=== PATIENT | female | born 1985 | race Caucasian/White ===

== ENCOUNTER 2022-07-14 09:37 | Outpatient (REF) | payer OTHER, SELFPAY ==
--- NOTE | ~2022-07-14 | XR_ITS ---
EXAMINATION: LUMBAR SPINE AND RIGHT HIP X-RAY CLINICAL INFORMATION: Radiculopathy. Right hip pain. COMPARISON: None TECHNIQUE: 2 views of the right hip and 3 views of the lumbar spine FINDINGS: Right hip: Bone alignment is normal. No fracture or dislocation. Normal joint space. Normal soft tissues. Lumbar spine: There is mild curvature of the lumbar spine to the right. There is mild retrolisthesis of L4 with respect L5 measuring 2 mm. Bone alignment is otherwise normal. No fracture or dislocation. Normal disc spaces. XR/XR lumbar spine 2-3V IMPRESSION: Left hip: Unremarkable exam. Lumbar spine: Mild curvature of the lower lumbar spine to the right and retrolisthesis of L4 with respect L5
--- NOTE | ~2022-07-14 | XR_ITS ---
EXAMINATION: LUMBAR SPINE AND RIGHT HIP X-RAY CLINICAL INFORMATION: Radiculopathy. Right hip pain. COMPARISON: None TECHNIQUE: 2 views of the right hip and 3 views of the lumbar spine FINDINGS: Right hip: Bone alignment is normal. No fracture or dislocation. Normal joint space. Normal soft tissues. Lumbar spine: There is mild curvature of the lumbar spine to the right. There is mild retrolisthesis of L4 with respect L5 measuring 2 mm. Bone alignment is otherwise normal. No fracture or dislocation. Normal disc spaces. XR/XR hip RT min 2V IMPRESSION: Left hip: Unremarkable exam. Lumbar spine: Mild curvature of the lower lumbar spine to the right and retrolisthesis of L4 with respect L5
[2022-07-14 11:09] LABS: MANUAL DIFF FLAG NO
[2022-07-14 11:15] LABS: Basophils Percent Auto 0.4 % (0-2); Eosinophils Percent Auto 0.3 % (0-4); Hematocrit 37.4 % (37.0-47.0); Hemoglobin 12.4 g/dl (12.0-16.0); Imm Gran Abs Auto 0.02 X10*3/uL (0.00-0.03); Imm Gran Pct Auto 0.3 % (0.0-0.4); Lymphocytes Absolute Auto 1.8 X10*3/uL (1.2-4.9); Lymphocytes Percent Auto 23.9 % (20-40); Mean Corpuscular HGB Conc 33.2 g/dl (31.0-35.0); Mean Corpuscular Hemoglobin 30.7 pg (27.0-33.0); Mean Corpuscular Volume 92.6 fL (80.0-98.0); Mean Platelet Volume 9.6 fL (9.4-12.3); Monocytes Absolute Auto 0.7 X10*3/uL (0.1-1.2); Monocytes Percent Auto 8.8 % (2-11); Neutrophils Percent Auto 66.3 % (45-73); Platelet Count 454 X10*3/uL (160-400); Red Blood Count 4.04 X10*6/uL (4.20-5.50); Red Cell Distribution Width 12.2 % (11.0-16.0); White Blood Count 7.6 X10*3/uL (4.8-10.8)
[2022-07-14 11:39] LABS: Alanine Aminotransferase 17 U/L (0-31); Albumin Level 4.5 g/dL (3.5-5.0); Alkaline Phosphatase 47 U/L (39-117); Anion Gap 15 (12-20); Aspartate Amino Transferase 14 U/L (5-31); Bilirubin Total 0.5 mg/dL (0.0-1.0); Blood Urea Nitrogen 15 mg/dL (9-16); Calcium 9.8 mg/dL (8.4-10.2); Carbon Dioxide 25 mmol/L (22-29); Chloride 103 mmol/L (96-108); Cholesterol 225 mg/dL; Estimated Glomerular Filt Rate > 60; Glucose Fasting 99 mg/dL (60-99); HDL Cholesterol 64 mg/dL; LDL Cholesterol Calculated 151 mg/dl; Potassium 4.3 mmol/L (3.3-5.1); Sodium 139 mmol/L (135-145); Total Protein 7.2 g/dL (6.5-8.0); Triglycerides 51 mg/dL
[2022-07-14 12:00] LABS: TSH reflex Free T4 1.89 uIU/mL (0.32-4.0)
[2022-07-16 05:12] LABS: Prolactin 26.8 ng/mL
[2022-07-20 14:47] LABS: Vitamin D 25-OH, D2 <4 ng/mL; Vitamin D 25-OH, D3 25 ng/mL; Vitamin D 25-OH, Total 25 ng/mL (30-100)
== END 2022-07-14 09:38 | disposition home or self-care (01) ==
LOC: HO.HMGCX 09:37
PROVIDERS: PCP Internal Medicine; Visit Provider Internal Medicine
DX: Z00.01 Encounter for general adult medical examination with abnormal findings (principal); D35.2 Benign neoplasm of pituitary gland; E66.09 Other obesity due to excess calories; M25.551 Pain in right hip; M54.16 Radiculopathy, lumbar region
CPT/HCPCS: 36415; 72100; 73502; 80053; 80061; 82306; 84146; 84443; 85025

== ENCOUNTER → 2022-09-05 11:05 | Outpatient (BNVA) | payer OTHER, SELFPAY | PROVIDERS: PCP Internal Medicine; Visit Provider Internal Medicine Endocrinology, Diabetes & Metabolism | DX: D35.2 Benign neoplasm of pituitary gland (principal) | CPT/HCPCS: 99202 ==

== ENCOUNTER 2022-09-06 11:51 | Outpatient (REF) | payer OTHER, SELFPAY ==
[2022-09-06 14:52] LABS: Alanine Aminotransferase 12 U/L (0-31); Albumin Level 4.2 g/dL (3.5-5.0); Alkaline Phosphatase 47 U/L (39-117); Aspartate Amino Transferase 13 U/L (5-31); Bilirubin Direct < 0.2 mg/dL (0.0-0.5); Bilirubin Total 0.4 mg/dL (0.0-1.0); Free T4 (Free Thyroxine) 0.93 ng/dL (0.71-1.85); Total Protein 6.8 g/dL (6.5-8.0)
[2022-09-08 03:54] LABS: Prolactin 29.5 ng/mL
== END 2022-09-06 11:52 | disposition home or self-care (01) ==
LOC: HO.HMGCLDS 11:51
PROVIDERS: PCP Internal Medicine; Visit Provider Internal Medicine Endocrinology, Diabetes & Metabolism
DX: D35.2 Benign neoplasm of pituitary gland (principal)
CPT/HCPCS: 36415; 80076; 84146; 84439; 84443

== ENCOUNTER → 2023-01-02 14:55 | Outpatient (BNVA) | payer OTHER, SELFPAY | PROVIDERS: PCP Internal Medicine; Visit Provider Internal Medicine Endocrinology, Diabetes & Metabolism | DX: D35.2 Benign neoplasm of pituitary gland (principal) | CPT/HCPCS: 99212 ==

== ENCOUNTER 2023-04-10 10:42 | Outpatient (AMB) | payer OTHER, SELFPAY ==
--- NOTE | 2023-04-10 08:03 | A.OFFPC_ITS ---
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 [employer] Physical Is last menstrual period known: Yes Last menstrual period: 03/17/23 Allergies nickel Allergy (Mild, Verified 04/10/23 10:51) Rash Tobacco use date assessed: 04/10/23 Dental Screening Dental Screen Date: 04/10/23 Did you have a dental visit in the last 12 months?: Yes Did you have a dental problem in the last 6 months where you did not have access to dental care?: No Was dental information given to patient?: No HPI Paperwork for [employer] Physical HPI Details Patient is a 38-year-old female came in today to have her paperwork filled for pre-employment Patient need a physical exam Hearing test Eye exam Dental exam Pap smear HIV and hepatitis screening TB screening Urine drug screen EKG Paperwork filled some of the test are pending so it was not signed. She has passed physical exam and whisper hearing test but she will have a formal audiology exam done. REPLACED BY [facility] Surgical History Hx of tonsillectomy Hx of wisdom tooth extraction Family History Father Substance use disorder Maternal Grandfather Substance use disorder Mother Mental health disorder Sister Mental health disorder Maternal Grandmother Mental health disorder Social History Household Members Other:: 2 dogs Housing: House Alcohol intake: current Alcohol intake frequency: other Patient Tobacco Use Status: Former Tobacco user Quit Date: quit 2 years ago e-Cigarette/Vaping Use: Never Used Second Hand Smoke Exposure: No service: Yes Current occupational status: employed Current occupation: [employer] and [employer] Current occupational exposures/hazards: Yes Cognitive needs: No Hearing needs: No Vision needs: No Female Reproductive History Menstrual Date of last menstrual period: 03/17/23 Questionnaire Thrive Questionnaire Date Thrive assessed: 07/13/22 AUDIT C Alcohol Use Questionnaire (AUDIT-C) 1. How often do you have a drink containing alcohol?: Monthly or less 2. How many drinks containing alcohol do you have on a typical day when you are drinking?: 1 or 2 3. How often do you have six or more drinks on one occasion?: Never Total Score: 1 Score Reviewed/Action Taken: Yes Review of Systems Const Denies chills, Denies fever(s) and Denies headache(s) Eyes Denies blurry vision ENT Denies headache(s), Denies nasal discharge, Denies nasal obstruction, Denies odynophagia and Denies sinus pain Card Denies chest pain at rest and Denies chest pain with activity Resp Denies cough and Denies hemoptysis GI Denies diarrhea, Denies odynophagia, Denies vomiting and Denies hematemesis Reports as per HPI Musc Denies abnormal gait Skin/Breast Reports as per HPI Neuro Denies Neuro-related abnormal movements, Denies Abnormal speech present, Denies abnormal gait, Denies headache(s) and Denies Sensory deficit (Neuro) Psych Denies mood swings and Denies paranoia Endo Reports as per HPI Cecil/Lymph Reports as per HPI Aller/Immun Reports as per HPI Physical exam (Primary Care) Vital Signs: Last Vital Signs Pulse 76 04/10/23 10:50 BP 104/70 04/10/23 10:50 Pulse Ox 98 04/10/23 10:50 Oxygen Delivery Method Room Air 04/10/23 10:50 BMI result Body Mass Index 33.6 Tobacco/Smoking Status: Tobacco use Status Tobacco use date assessed 04/10/23 04/10/23 10:52 Patient Tobacco Use Status Former Tobacco user 04/10/23 08:03 e-Cigarette/Vaping Use Never Used 04/10/23 08:03 Thrive Assessment: Date of Thrive Assessment Date Thrive assessed 07/13/22 04/10/23 08:03 Const General: cooperative, comfortable and no acute distress Orientation/consciousness: patient oriented x3 HENMT Head: Yes normocephalic and Yes atraumatic Eyes General: appearance normal, both eyes and all related structures Pupils: Equal, round and reactive pupils present EOM: EOMs intact bilaterally Neck Neck: Yes supple and No lymphadenopathy Thyroid: Thyroid normal Lymphatic: no lymphadenopathy noted Resp Effort & Inspection: normal respiratory effort and able to speak in complete sentences Auscultation: clear to auscultation bilaterally Cardio Heart sounds: S1 normal heart sound present and S2 normal heart sound present GI Palpation (GI): Soft to palpation and nontender Auscultation: normal bowel sounds General: Yes no CVA tenderness Back/Spine/Pelvis Back: no CVA tenderness Skin General skin exam: elasticity normal and turgor normal Neuro General: patient oriented x3 and gait normal Cranial nerves: Yes Equal, round and reactive pupils present Speech: No Abnormal speech present Sensory Exam: No Sensory deficit (Neuro) Coordination: tandem gait normal and Romberg test negative Extrem General: Yes normal exam except as noted and No edema Results AMB Test Urine AMB Test Urine Negative Last Edit by KASANDRA Garcia on 04/10/23 11:00 Results Reviewed Results Reviewed: Laboratory Last Values Tst Clinic Negative 04/10/23 10:58 Assessment and Plan Assessment & Plan (1) Physical exam, pre-employment: Code(s): Z02.1 - Encounter for pre-employment examination (2) Encounter for audiology evaluation: Code(s): Z01.10 - Encounter for examination of ears and hearing without abnormal findings Plan Patient is a 38-year-old female came in today to have her paperwork filled for pre-employment Patient need a physical exam Hearing test Eye exam Dental exam Pap smear HIV and hepatitis screening TB screening Urine drug screen EKG Paperwork filled some of the test are pending so it was not signed. She has passed physical exam and whisper hearing test but she will have a formal audiology exam done. Orders: Orders XR chest 2V Today Z02.1 - Encounter for pre-employment examination Hepatitis B Surface Antibody Today Z02.1 - Encounter for pre-employment examination Hepatitis A IgG Today Z02.1 - Encounter for pre-employment examination HIV Ab/Ag Today Z02.1 - Encounter for pre-employment examination Rubeola IgG (Measles) Today Z02.1 - Encounter for pre-employment examination Rubella IgG Antibody Today Z02.1 - Encounter for pre-employment examination T Spot TB Today Z02.1 - Encounter for pre-employment examination Mumps Virus IgG Antibody Today Z02.1 - Encounter for pre-employment examination Varicella IgG Antibody Today Z02.1 - Encounter for pre-employment examination Drug Screen Urine Today Z02.1 - Encounter for pre-employment examination AMB HCG Urine Test Today Z32.02 - Encounter for test, result negative AMB EKG-In Office Today Z02.1 - Encounter for pre-employment examination, Z13.6 - Encounter for screening for cardiovascular disorders Referrals Audiology Referral Z01.10 - Encounter for examination of ears and hearing without abnormal findings, Z02.1 - Encounter for pre-employment examination Coding Level of Care Code Est Pt Level 5 (71392) Diagnoses Physical exam, pre-employment Z02.1 Encounter for audiology evaluation Z01.10 Comment 46 minute spent /paperwork/coordination of care
[2023-04-10 10:50] VITALS: BP 104/70; PULSE 76; O2SAT 98; BMI 33.6
== END 2023-04-10 11:44 | disposition home or self-care (01) ==
PROVIDERS: PCP Internal Medicine; Visit Provider Internal Medicine
DX: Z02.1 Encounter for pre-employment examination (principal); Z32.02 Encounter for pregnancy test, result negative
CPT/HCPCS: 81025; 93000; 99215

== ENCOUNTER 2023-04-10 11:22 | Outpatient (REF) | payer OTHER, SELFPAY ==
--- NOTE | ~2023-04-10 | XR_ITS ---
EXAMINATION: XR CHEST CLINICAL INFORMATION: Encounter for preemployment examination COMPARISON: None available. TECHNIQUE: 2 views of the chest were obtained. FINDINGS: No significant abnormality is noted involving the heart, lungs, mediastinum, bony thorax or soft tissues. XR/XR chest 2V IMPRESSION: Unremarkable examination.
[2023-04-10 14:40] LABS: Amphetamine Screen Urine Not Detected (Not Detect); Barbiturates, Urine Not Detected (Not Detect); Benzodiazepines Screen Urine Not Detected (Not Detect); Cannabinoid Screen Urine Not Detected (Not Detect); Cocaine Screen Urine Not Detected (Not Detect); Fentanyl, urine Not Detected (Not Detect); Opiate Screen Urine Not Detected (Not Detect); Phencyclidine Screen Urine Not Detected (Not Detect)
[2023-04-11 05:25] LABS: Hepatitis A Antibody IgG REACTIVE (Nonreactive); ~Hepatitis A Antibody IgG 8.91 S/CO (0.00-0.99)
[2023-04-11 05:26] LABS: HBS Num1 531.48 mIU/mL (0-7.99); HIV AB/AG Nonreactive (Nonreactive); HIV Num 1 0.07 S/CO (0.00-0.99); ~Hepatitis B Surface Antibody REACTIVE (Nonreactive)
[2023-04-11 09:14] LABS: Rubeola IgG (Measles) >300.00 AU/mL
[2023-04-11 11:44] LABS: Rubella IgG Antibody 3.43 Index
[2023-04-12 12:23] LABS: TS Negative Control Passed; TS Panel A 1; TS Panel B 5; TS Positive Control Passed; TSpotTB Borderline (Negative)
== END 2023-04-10 11:23 | disposition home or self-care (01) ==
LOC: HO.HMGCX 11:22
PROVIDERS: PCP Internal Medicine; Visit Provider Internal Medicine
DX: Z02.1 Encounter for pre-employment examination (principal); Z32.02 Encounter for pregnancy test, result negative
CPT/HCPCS: 71046; 80307; 86481; 86706; 86708; 86735; 86762; 86765; 86787; 87389

== ENCOUNTER 2023-04-23 11:09 | Outpatient (AMB) | payer OTHER, SELFPAY ==
--- NOTE | 2023-04-23 11:09 | A.OFFPC_ITS ---
Intake Visit Reasons: Follow Up ~ Allergies nickel Allergy (Mild, Verified 04/10/23 10:51) Rash Medication List - Last Reconciled 04/23/23 by Ashlie Ruiz MD cabergoline 0.25 mg (1/2 x 0.5 mg) PO 2XW cholecalciferol (vitamin D3) 25 mcg PO DAILY 90 days Tobacco use date assessed: 04/10/23 HPI Follow Up ~ HPI Details This is a telemedicine visit Patient had labs done for work Her immunization titers are within normal range However T spot test came back as borderline Chest x-ray is clear patient is asymptomatic. I have filled her paperwork however I think it will be a reasonable approach for her to have a consultation with Infectious Disease to discuss the T spot test further. Patient agrees [facility] Surgical History Hx of tonsillectomy Hx of wisdom tooth extraction Family History Father Substance use disorder Maternal Grandfather Substance use disorder Mother Mental health disorder Sister Mental health disorder Maternal Grandmother Mental health disorder Social History Household Members Other:: 2 dogs Housing: House Alcohol intake: current Alcohol intake frequency: other Patient Tobacco Use Status: Former Tobacco user Quit Date: quit 2 years ago e-Cigarette/Vaping Use: Never Used Second Hand Smoke Exposure: No service: Yes Current occupational status: employed Current occupation: [employer] and [employer] Current occupational exposures/hazards: Yes Cognitive needs: No Hearing needs: No Vision needs: No Questionnaire Thrive Questionnaire Date Thrive assessed: 07/13/22 Review of Systems Const Denies chills and Denies fever(s) ENT Denies epistaxis and Denies nasal discharge Card Denies chest pain Resp Denies chest congestion, Denies cough and Denies hemoptysis GI Denies diarrhea and Denies nausea Skin/Breast Denies rash Neuro Reports no additional complaints Psych Reports no additional complaints Endo Reports no additional complaints Physical exam (Primary Care) Tobacco/Smoking Status: Tobacco use Status Tobacco use date assessed 04/10/23 04/23/23 11:09 Patient Tobacco Use Status Former Tobacco user 04/23/23 11:09 e-Cigarette/Vaping Use Never Used 04/23/23 11:09 Thrive Assessment: Date of Thrive Assessment Date Thrive assessed 07/13/22 04/23/23 11:09 Telehealth Telehealth Location of provider rendering services: practice address Location of patient: address on file Patient Identification confirmed using: Name, : Yes Telehealth method: voice only Patient verbally consented to treatment: Yes Patient verbally consented to billing insurance company: Yes Patient informed of any privacy concerns related to visit: Yes Assessment and Plan Assessment & Plan (1) Abnormal laboratory test: Code(s): R89.9 - Unspecified abnormal finding in specimens from other organs, systems and tissues (2) Screening-pulmonary TB: Code(s): Z11.1 - Encounter for screening for respiratory tuberculosis Plan This is a telemedicine visit Patient had labs done for work Her immunization titers are within normal range However T spot test came back as borderline Chest x-ray is clear patient is asymptomatic. I have filled her paperwork however I think it will be a reasonable approach for her to have a consultation with Infectious Disease to discuss the T spot test further. Patient agrees All information gathered from chart lab reports printed Her EKG was within normal limit test negative Paperwork filled patient notified Audiology and eye exam is with patient, through different providers Orders: Referrals Infectious Disease Referral R89.9 - Unspecified abnormal finding in specimens from other organs, systems and tissues, Z11.1 - Encounter for screening for respiratory tuberculosis Coding Level of Care Code Tele Est Pt Level 4 (08174) Diagnoses Abnormal laboratory test R89.9 Screening-pulmonary TB Z11.1 Comment 30 including phone call / paperwork and charting
== END 2023-04-23 12:12 | disposition home or self-care (01) ==
LOC: HO.HMGC 11:09
PROVIDERS: PCP Internal Medicine; Visit Provider Internal Medicine
DX: R89.9 Unspecified abnormal finding in specimens from other organs, systems and tissues (principal); Z11.1 Encounter for screening for respiratory tuberculosis
CPT/HCPCS: 99214

== ENCOUNTER 2023-05-08 11:59 | Outpatient (REF) | payer OTHER, SELFPAY ==
[2023-05-08 13:39] LABS: Alanine Aminotransferase 12 U/L (0-31); Alkaline Phosphatase 40 U/L (39-117); Aspartate Amino Transferase 14 U/L (5-31); Bilirubin Direct 0.2 mg/dL (0.0-0.5); Bilirubin Total 0.6 mg/dL (0.0-1.0); Total Protein 6.8 g/dL (6.5-8.0)
== END 2023-05-08 12:00 | disposition home or self-care (01) ==
LOC: HO.HMGCLDS 11:59
PROVIDERS: PCP Internal Medicine; Visit Provider Internal Medicine Endocrinology, Diabetes & Metabolism
DX: D35.2 Benign neoplasm of pituitary gland (principal)
CPT/HCPCS: 36415; 80076; 84146

== ENCOUNTER 2023-05-29 15:06 | Outpatient (AMB) | payer OTHER, SELFPAY ==
--- NOTE | 2023-05-29 15:21 | MHC.OFFVIS ---
Intake Vital Signs 05/29/23 15:24 Height 5 ft Weight 168 lb BMI 32.8 BP 100/70 Blood Pressure Location Lt brachial Position Sitting Pulse 82 Pulse Source Pulse Oximeter Temp 98.6 F Pulse Oximetry (%) 98 Intake Visit Reasons: Ref.,respiratory Tuberculosis Allergies nickel Allergy (Mild, Verified 05/29/23 15:26) Rash HPI Ref.,respiratory Tuberculosis HPI Details She had indeterminate T spot done as part of [employer] physical. SHe has not had prior positive TB testing. She has no hemoptysis or exposure to TB. CXR is unremarkable [facility] Surgical History Hx of wisdom tooth extraction Hx of tonsillectomy Family History Father Substance use disorder Maternal Grandfather Substance use disorder Mother Mental health disorder Sister Mental health disorder Maternal Grandmother Mental health disorder Social History Household Members Other:: 2 dogs Housing: House Alcohol intake: current Alcohol intake frequency: other Patient Tobacco Use Status: Former Tobacco user Quit Date: quit 2 years ago e-Cigarette/Vaping Use: Never Used Second Hand Smoke Exposure: No service: Yes Current occupational status: employed Current occupation: [employer] and [employer] Current occupational exposures/hazards: Yes Cognitive needs: No Hearing needs: No Vision needs: No Review of Systems Const All systems reviewed & are unremarkable except as noted in HPI and below Physical Exam Vital Signs: Last Vital Signs Temp 98.6 F 05/29/23 15:24 Pulse 82 05/29/23 15:24 BP 100/70 05/29/23 15:24 Pulse Ox 98 05/29/23 15:24 BMI result Body Mass Index 32.8 Const General: cooperative Orientation/consciousness: patient oriented x3 HEENT Head: Yes normal to inspection Mouth: Normal oral and palatal mucosa present Eyes General: appearance normal, both eyes and all related structures Pupils: Equal, round and reactive pupils present Resp Effort & Inspection: normal respiratory effort Cardio Rate: regular rate Rhythm: regular rhythm GI Palpation (GI): Soft to palpation and nontender General: Yes no CVA tenderness Back/Spine/Pelvis Back: no CVA tenderness Skin General skin exam: no rashes or lesions noted Neuro General: patient oriented x3 Cranial nerves: Yes CN's II-XII intact bilaterally and Yes Equal, round and reactive pupils present Extrem General: Yes normal to inspection Psych Appearance: grossly normal Assessment & Plan Assessment & Plan (1) Screening-pulmonary TB: Comment: She has no signs of active disease. She has no concerns This is possible false positive. Code(s): Z11.1 - Encounter for screening for respiratory tuberculosis Plan Recheck T spot Consider 300 mg daily INH for six months and vitamin B6 50 mg daily as well if Tspot positive. Patient would call us when she has T spot done. Orders: Orders T Spot TB 05/29/23 R89.9 - Unspecified abnormal finding in specimens from other organs, systems and tissues Coding Level of Care Code New Pt Level 3 (29402) Diagnoses Screening-pulmonary TB Z11.1
[2023-05-29 15:24] VITALS: BP 100/70; PULSE 82; TEMP 37; O2SAT 98; BMI 32.8
== END 2023-05-29 16:53 ==
PROVIDERS: PCP Internal Medicine; Visit Provider Internal Medicine
DX: Z11.1 Encounter for screening for respiratory tuberculosis (principal)
CPT/HCPCS: 99203

== ENCOUNTER → 2023-05-29 15:06 | Outpatient (BNVA) | payer OTHER, SELFPAY | PROVIDERS: PCP Internal Medicine; Visit Provider Internal Medicine ==

== ENCOUNTER 2023-07-16 15:50 | Outpatient (AMB) | payer OTHER, SELFPAY ==
[2023-07-16 15:52] VITALS: BP 102/72; PULSE 80; BMI 33.2
--- NOTE | 2023-07-16 15:52 | MHC.OFFVIS ---
Intake Vital Signs 07/16/23 15:52 Height 5 ft Weight 170 lb 3.15 oz BMI 33.2 BP 102/72 Blood Pressure Location Lt brachial Position Sitting Pulse 80 Pulse Source Pulse Oximeter Intake Visit Reasons: f/u hyperprolactinemia-CONFIRMED Intake Note: Patient present for Hyperprolactinemia follow up visit. 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 She is currently on cabergoline Her menses have been . She denies any breast discharge. She had a normal MRI the pituitary in the past. She denies any symptoms of acromegaly.Denies hx of hypothyroidism . Not actively trying to get . PFSH Surgical History Hx of wisdom tooth extraction Hx of tonsillectomy Family History Father Substance use disorder Maternal Grandfather Substance use disorder Mother Mental health disorder Sister Mental health disorder Maternal Grandmother Mental health disorder Household Members Other:: 2 dogs Housing: House Alcohol intake: current Alcohol intake frequency: other Patient Tobacco Use Status: Former Tobacco user Quit Date: quit 2 years ago e-Cigarette/Vaping Use: Never Used Second Hand Smoke Exposure: No service: Yes Current occupational status: employed Current occupation: [employer] and [employer] Current occupational exposures/hazards: Yes Cognitive needs: No Hearing needs: No Vision needs: No Assessment & Plan Assessment & Plan (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 Could consider a drug holiday in the future. Reluctant to go on a drug holiday currently because she have recurrences in the past but is open to this in 6 month. I did tell her that if we need to use cabergoline a long-term basis we may have to get echocardiogram to look for any valvular problems which have been described with long-term use of cabergoline Coding Level of Care Code Est Pt Level 3 (79351) Diagnoses Prolactinoma D35.2
== END 2023-07-16 16:09 | disposition home or self-care (01) ==
PROVIDERS: PCP Internal Medicine; Visit Provider Internal Medicine Endocrinology, Diabetes & Metabolism
DX: D35.2 Benign neoplasm of pituitary gland (principal)
CPT/HCPCS: 99213

== ENCOUNTER → 2023-07-16 15:50 | Outpatient (BNVA) | payer OTHER, SELFPAY | PROVIDERS: Visit Provider Internal Medicine Endocrinology, Diabetes & Metabolism | DX: D35.2 Benign neoplasm of pituitary gland (principal) | CPT/HCPCS: 99212 ==

== ENCOUNTER 2023-07-17 11:21 | Outpatient (AMB) | payer OTHER, SELFPAY ==
[2023-07-17 11:26] VITALS: BP 104/68; PULSE 65; O2SAT 100; BMI 33.9
--- NOTE | 2023-07-17 11:26 | A.OFFPC_ITS ---
Vital Signs 07/17/23 11:26 Height 5 ft Weight 173 lb 6 oz BMI 33.9 BP 104/68 Blood Pressure Location Rt brachial Position Sitting Pulse 65 Pulse Source Pulse Oximeter Pulse Oximetry (%) 100 Oxygen Delivery Method Room Air Intake Visit Reasons: Annual PE Allergies nickel Allergy (Mild, Verified 07/17/23 11:28) Rash Medication List - Last Reconciled 07/17/23 by Ashlie Ruiz MD cabergoline 0.25 mg (1/2 x 0.5 mg) PO 2XW cholecalciferol (vitamin D3) 25 mcg PO DAILY 90 days Tobacco use date assessed: 07/17/23 Dental Screening Dental Screen Date: 07/17/23 Did you have a dental visit in the last 12 months?: Yes Did you have a dental problem in the last 6 months where you did not have access to dental care?: No Was dental information given to patient?: Patient has dentist HPI Annual PE HPI Details Patient is a 38-year-old female came in today for physical exam Patient have a history of prolactinoma and is seeing Dr. Panchal for management Labs done last year reviewed again I see that her LDL is above 150. We will be repeating labs again fasting BMI is 33.9 patient need to lose weight as well. She offers no complaints today. OBGYN is at [facility], Pap smear and breast exam is through them [facility] Surgical History Hx of wisdom tooth extraction Hx of tonsillectomy Family History Father Substance use disorder Maternal Grandfather Substance use disorder Mother Mental health disorder Sister Mental health disorder Maternal Grandmother Mental health disorder Household Members Other:: 2 dogs Housing: House Alcohol intake: current Alcohol intake frequency: other Patient Tobacco Use Status: Former Tobacco user Quit Date: quit 2 years ago e-Cigarette/Vaping Use: Never Used Second Hand Smoke Exposure: No service: Yes Current occupational status: employed Current occupation: [employer] and [employer] Current occupational exposures/hazards: Yes Cognitive needs: No Hearing needs: No Vision needs: No Questionnaire PHQ-9 Over the last 2 weeks, how often have you been bothered by any of the following problems? 1. Little interest or pleasure in doing things: more than half the days 2. Feeling down, depressed, or hopeless: several days 3. Trouble falling or staying asleep, or sleeping too much: more than half the days 4. Feeling tired or having little energy: not at all 5. Poor appetite or overeating: more than half the days 6. Feeling bad about yourself - or that you are a failure or have let yourself or your family down: not at all 7. Trouble concentrating on things, such as reading the newspaper or watching television: more than half the days 8. Moving or speaking so slowly that other people could have noticed. Or the opposite - being so fidgety or restless that you have been moving around a lot more than usual: not at all 9. Thoughts that you would be better off or of hurting yourself in some way: not at all Total score: 9 Depression Screening Interpretation: Positive Depression Screening Follow-up: Existing condition and Declines treatment Depression Screening Done: Yes 22303 - PHQ-9 Billing: Yes Source: Developed by Drs. Vivek Linton, Tamela Martinez, Petros bermeo nd colleagues, with an educational giovanni from [employer]. Thrive Questionnaire Date Thrive assessed: 07/13/22 AUDIT C Alcohol Use Questionnaire (AUDIT-C) 1. How often do you have a drink containing alcohol?: Monthly or less 2. How many drinks containing alcohol do you have on a typical day when you are drinking?: 1 or 2 3. How often do you have six or more drinks on one occasion?: Never Total Score: 1 Score Reviewed/Action Taken: Yes CHRISTOPHER-7 AMB Questionnaire CHRISTOPHER-7 Feeling nervous, anxious, or on edge: 2 = More than half the days Not being able to stop or control worryin = Not at all Worrying too much about different things: 0 = Not at all Trouble relaxin = More than half the days Being so restless that it is hard to sit still: 2 = More than half the days Becoming easily annoyed or irritable: 1 = Several days Feeling afraid as if something awful might happen: 0 = Not at all Total CHRISTOPHER-7 score (0-4 normal; 5-9 mild; 10-14 moderate; 15-21 severe): 7 Source: Developed by Drs. Vivek Linton, Tamela Martinez, Petros Cuevas and colleagues, with an educational giovanni from [employer]. CHRISTOPHER-7 Assessment Billing CHRISTOPHER-7 Assessment Tool: CHRISTOPHER-7 Assessment 58121 Review of Systems Const Denies chills, Denies fever(s) and Denies headache(s) Eyes Denies blurry vision ENT Denies headache(s), Denies nasal discharge, Denies nasal obstruction, Denies odynophagia and Denies sinus pain Card Denies chest pain at rest and Denies chest pain with activity Resp Denies cough and Denies hemoptysis GI Denies diarrhea, Denies odynophagia, Denies vomiting and Denies hematemesis Reports as per HPI Musc Denies abnormal gait Skin/Breast Reports as per HPI Neuro Denies Neuro-related abnormal movements, Denies Abnormal speech present, Denies abnormal gait, Denies headache(s) and Denies Sensory deficit (Neuro) Psych Denies mood swings and Denies paranoia Endo Reports as per HPI Cecil/Lymph Reports as per HPI Aller/Immun Reports as per HPI Physical exam (Primary Care) Vital Signs: Last Vital Signs Pulse 65 07/17/23 11:26 BP 104/68 07/17/23 11:26 Pulse Ox 100 07/17/23 11:26 Oxygen Delivery Method Room Air 07/17/23 11:26 BMI result Body Mass Index 33.9 Tobacco/Smoking Status: Tobacco use Status Tobacco use date assessed 07/17/23 07/17/23 11:30 Patient Tobacco Use Status Former Tobacco user 07/17/23 11:30 e-Cigarette/Vaping Use Never Used 07/17/23 11:30 PHQ-9: PHQ-9 Score PHQ-9: Total score 9 07/17/23 11:51 Depression Screening Interpretation: Positive Depression Screening Follow-up: Existing condition and Declines treatment Thrive Assessment: Date of Thrive Assessment Date Thrive assessed 07/13/22 07/17/23 11:30 Const General: cooperative, comfortable and no acute distress Orientation/consciousness: patient oriented x3 HENMT Head: Yes normocephalic and Yes atraumatic Eyes General: appearance normal, both eyes and all related structures Pupils: Equal, round and reactive pupils present EOM: EOMs intact bilaterally Neck Neck: Yes supple and No lymphadenopathy Thyroid: Thyroid normal Lymphatic: no lymphadenopathy noted Resp Effort & Inspection: normal respiratory effort and able to speak in complete sentences Auscultation: clear to auscultation bilaterally Cardio Heart sounds: S1 normal heart sound present and S2 normal heart sound present GI Palpation (GI): Soft to palpation and nontender Auscultation: normal bowel sounds General: Yes no CVA tenderness Back/Spine/Pelvis Back: no CVA tenderness Skin General skin exam: elasticity normal and turgor normal Neuro General: patient oriented x3 and gait normal Cranial nerves: Yes Equal, round and reactive pupils present Speech: No Abnormal speech present Sensory Exam: No Sensory deficit (Neuro) Coordination: tandem gait normal and Romberg test negative Extrem General: Yes normal exam except as noted and No edema Assessment and Plan Assessment & Plan (1) Encounter for general adult medical examination with abnormal findings: Code(s): Z00.01 - Encounter for general adult medical examination with abnormal findings (2) Prolactinoma: Code(s): D35.2 - Benign neoplasm of pituitary gland (3) Obesity due to excess calories: Code(s): E66.09 - Other obesity due to excess calories (4) Lipid disorder: Code(s): E78.9 - Disorder of lipoprotein metabolism, unspecified Orders: Orders Complete Blood Count Auto Diff Today D35.2 - Benign neoplasm of pituitary gland, E66.09 - Other obesity due to excess calories, E78.9 - Disorder of lipoprotein metabolism, unspecified, Z00.01 - Encounter for general adult medical examination with abnormal findings Lipid Panel Today D35.2 - Benign neoplasm of pituitary gland, E66.09 - Other obesity due to excess calories, E78.9 - Disorder of lipoprotein metabolism, unspecified, Z00.01 - Encounter for general adult medical examination with abnormal findings Comprehensive [place]. Panel Fast Today D35.2 - Benign neoplasm of pituitary gland, E66.09 - Other obesity due to excess calories, E78.9 - Disorder of lipoprotein m etabolism, unspecified, Z00.01 - Encounter for general adult medical examination with abnormal findings Coding Level of Care Code Est Pt Prev Care [id number](87280) Diagnoses Encounter for general adult medical examination with abnormal findings Z00. Prolactinoma D35.2 Obesity due to excess calories E66.09 Lipid disorder E78.9 Additional Codes CHRISTOPHER-7 Assessment Billing - CHRISTOPHER-7 Assessment Tool: CHRISTOPHER-7 Assessment [id number] ([id number])
== END 2023-07-17 11:49 | disposition home or self-care (01) ==
PROVIDERS: Visit Provider Internal Medicine
DX: Z00.00 Encounter for general adult medical examination without abnormal findings (principal); D35.2 Benign neoplasm of pituitary gland; E66.09 Other obesity due to excess calories; Z68.33 Body mass index [BMI] 33.0-33.9, adult; E78.9 Disorder of lipoprotein metabolism, unspecified
CPT/HCPCS: 99395